=== PATIENT | female | born 1990 | race African-American/Black ===

== ENCOUNTER 2016-05-12 22:24 | Emergency (ER) | payer MEDICAID ==
[~2016-05-12] VITALS: Ht 165.1 cm; Wt 127.9 kg
[~2016-05-12 22:24] MED LIST: ALBUTEROL SULF8.5 GM INH; AMOXICILLIN500 M1 PO; AMOXICILLIN500 MG ORAL; AMOXICILLIN500 MG PO; CLEOCIN HCL300 MG PO; FLONASE1 SPRAYS; IBUPROFEN600 MG ORAL; IBUPROFEN800 MG ORAL; LIDOCAINE VISCO20 ML PO; NORCO 5-325 TA1 EACH ORAL; NORCO 5-325 TA1 EACH PO; PERCOCET 2.5-31 EACH ORAL; PERCOCET 5-3251 EACH ORAL; PERCOCET 5-3251 EACH PO; PERIDEX 0.12% O16 OZ MT; PHENERGAN25 M1 ORAL; PREDNISONE20 MG ORAL
--- NOTE | 2016-05-12 23:14 | Emergency Room Report ---
History of Present Illness General Chief Complaint: Headache Source: Patient Present Illness HPI This is a 25-year-old female with history of asthma and migraine. She presents with chief complaint of fever, body pain and headache. Onset today. Denies any nausea vomiting. Pain is diffuse. 10 out of 10. [id number] medication not helping. Does have sore throat. No cough. Mild congestion. Allergies: Coded Allergies: MORPHINE (Verified Allergy, Intermediate, nausea, 02/17/12) Patient History Past Medical History: see triage record, old chart reviewed, asthma, migraines Past Surgical History: other Pertinent Family History: none Social History: Denies: smoking Last Menstrual Period: 05/12/16 Now: No Immunizations: other Reviewed Nursing Documentation: PMH: Agreed, PSxH: Agreed Nursing Documentation-PMH Past Medical History: No History, Except For Hx Asthma: Yes Review of Systems Eye: Denies: blurred vision, eye pain ENT: Denies: ear pain, nose congestion, throat swelling Respiratory: Denies: cough, shortness of breath Cardiovascular: Denies: chest pain, palpitations Gastrointestinal: Denies: abdominal pain, diarrhea, nausea, vomiting Musculoskeletal: Denies: back pain, joint pain Skin: Denies: rash Neurological: Reports: headache Endocrine: Denies: increased thirst, increased urine Hematologic/Lymphatic: Denies: easy bruising All Other Systems: negative except mentioned in HPI Physical Exam Vital Signs Date Time Temp Pulse Resp B/P Pulse Ox O2 Delivery O2 Flow Rate FiO2 05/12/16 22:47 102.4 112 131/84 99 Room Air vitals with fever Sp02 EP Interpretation: reviewed, normal General Appearance: well appearing, no apparent distress, alert Head: normocephalic, atraumatic Eyes: bilateral eye EOMI, bilateral eye PERRL ENT: hearing grossly normal, normal pharynx Neck: full range of motion, supple, no meningismus Respiratory: chest non-tender, lungs clear, normal breath sounds Cardiovascular #1: regular rate, rhythm, no murmur Gastrointestinal: normal bowel sounds, non tender, no mass, no organomegaly, no bruit, non-distended Musculoskeletal: back normal, gait/station normal, normal range of motion Psychiatric: mood/affect normal Skin: warm/dry Medical Decision Making Diagnostic Impression: Primary Impression: Headache Qualified Codes: G44.209 - Tension-type headache, unspecified, not intractable Additional Impression: Influenza-like illness ER Course Patient presents with body pain, headache and fever. Most likely viral in nature. No evidence of meningitis. Because this is flu season, will going to treat for Cynthia. Her onset is less than 48 hours. She also has risk factor of obesity and asthma. No evidence of sepsis, meningitis, or other serious bacterial infection. Lab Results Impression labs with leukocytosis Last Vital Signs Date Time Temp Pulse Resp B/P Pulse Ox O2 Delivery O2 Flow Rate FiO2 05/12/16 22:47 102.4 112 131/84 99 Room Air Status: improved Disposition: HOME, SELF-CARE Condition: Stable Scripts Oseltamivir Phosphate (Tamiflu) 75 Mg Capsule 75 MG ORAL TWICE A DAY, #10 CAP Prov: SELAM WADE M.D. 05/13/16 Hydrocodone/Acetaminophen 5-325* (HYDROCODONE/ACETAMINOPHEN 5-325*) 1 Each Tablet 1 TAB ORAL Q6H Y for For Pain, #20 TAB 0 Refills Prov: SELAM WADE M.D. 05/13/16 Referrals: [facility],REFERRING (PCP) Additional Instructions: Followup with your DrAnkit in 2 to 3 days. Return for increasing pain, fever, chills, or any concern. SELAM WADE M.D. May 12, 2016 23:14
[2016-05-12] MEDS ORDERED: Ketorolac 30mg Inj IV ONE (23:15)
[2016-05-12] MEDS ORDERED: Acetaminophen 500mg (ES) tab ORAL ONE (23:15)
[2016-05-13 00:18] LABS: MEAN CORPUSCULAR HEMOGLOBIN 27.1 PG (27.0-31.0); MEAN CORPUSCULAR HGB CONC 32.6 G/DL (32.0-36.0); MEAN CORPUSCULAR VOLUME 83 FL (80-99); MEAN PLATELET VOLUME 7.2 FL (6.5-10.1); PLATELET COUNT 271 K/UL (150-450); RED BLOOD COUNT 4.62 M/UL (4.20-5.40); RED CELL DISTRIBUTION WIDTH 14.3 % (11.6-14.8); WHITE BLOOD COUNT 16.6 K/UL (4.8-10.8)
[2016-05-13 00:20] LABS: APPEARANCE,URINE CLEAR; KETONES,URINE NEGATIVE (NEGATIVE); LEUKOCYTE ESTERASE ,URINE NEGATIVE (NEGATIVE); NITRITE,URINE NEGATIVE (NEGATIVE); PH,URINE 6 (4.5-8.0); PROTEIN,URINE NEGATIVE (NEGATIVE); UROBILINOGEN,URINE NORMAL MG/DL (0.0-1.0)
[2016-05-13 00:26] LABS: RBC,URINE 0 /HPF (0 - 2); SQUAMOUS EPITHELIAL CELL,UR FEW /LPF (NONE/OCC); WBC,URINE 0 /HPF (0 - 2)
[2016-05-13 00:31] LABS: ANION GAP 15 (5-15); CALCIUM 9.5 mg/dL (8.6-10.2); CARBON DIOXIDE 25 mEQ/L (20-30); CHLORIDE 97 mEQ/L (98-107); CREATININE 0.9 mg/dL (0.5-0.9); GLOMERULAR FILTRATION RATE > 60 mL/min (>60); HEMOLYSIS 0; POTASSIUM 4.4 mEQ/L (3.4-4.9); SODIUM 137 mEQ/L (135-145)
[2016-05-13 00:36] VITALS: BP 101/67
[2016-05-13] MEDS ORDERED: TAMIFLU75 MG ORAL (00:53)
[2016-05-13] MEDS ORDERED: HYDROCODON-ACE1 EA15 ORAL (00:53)
[2016-05-13 01:01] VITALS: BP 101/67
== END 2016-05-13 01:02 | disposition home or self-care (01) ==
LOC: EMR 22:45
DX: G44.209 Tension-type headache, unspecified, not intractable (principal); J11.1 Influenza due to unidentified influenza virus with other respiratory manifestations; Z88.6 Allergy status to analgesic agent; Z87.09 Personal history of other diseases of the respiratory system
CPT/HCPCS: 36415; 80048; 81001; 81025; 85025; 86710; 96374; 96375; 99284; J1885

== ENCOUNTER 2016-09-24 15:02 | Emergency (ER) | payer MEDICAID ==
[~2016-09-24] VITALS: Ht 165.1 cm; Wt 117.9 kg
[~2016-09-24 15:02] MED LIST changes: +HYDROCODON-ACE1 EA15 ORAL; +TAMIFLU75 MG ORAL
--- NOTE | 2016-09-24 15:57 | Emergency Room Report ---
History of Present Illness General Chief Complaint: Lower Extremity Injury Source: Patient Present Illness HPI 26 Yo female presents to the ED c/o 10/26 in severity anterior left leg tenderness with two areas of swelling. pt. reports discoloration, she reports trauma to location of henry near by in july, however states she has not had trauma to the location of her symptoms. pt. reports some numbness/tingling superficially to the area of discoloration. pt. denies fevers, chills, increased temperature to the touch, recent open lesions or itching. pt. denies abdominal pain or rashes. denies bruises elsewhere. pt. denies immune compromise. Denies CP, Palpitations, LOC, AMS, dizziness, Changes in Vision, Sensation, paresthesias, or a sudden severe headache. Allergies: Coded Allergies: MORPHINE (Verified Allergy, Intermediate, nausea, 02/17/12) Patient History Past Medical History: see triage record Past Surgical History: none Pertinent Family History: none Last Menstrual Period: 09/22/16 Now: No Reviewed Nursing Documentation: PMH: Agreed, PSxH: Agreed Nursing Documentation-PMH Hx Asthma: Yes Review of Systems All Other Systems: negative except mentioned in HPI Physical Exam Vital Signs Date Time Temp Pulse Resp B/P Pulse Ox O2 Delivery O2 Flow Rate FiO2 09/24/16 15:29 98.4 71 16 123/78 98 Room Air Sp02 EP Interpretation: reviewed, normal General Appearance: no apparent distress, alert, GCS 15, non-toxic Head: normocephalic, atraumatic Eyes: bilateral eye PERRL, bilateral eye normal inspection ENT: hearing grossly normal, normal pharynx, no angioedema, normal voice Neck: full range of motion, supple/symm/no masses Respiratory: lungs clear, normal breath sounds, speaking full sentences Cardiovascular #1: regular rate, rhythm, no edema Cardiovascular #2: 2+ dorsalis pedis (R), 2+ dorsalis pedis (L) Gastrointestinal: no guarding Musculoskeletal: back normal, gait/station normal, normal range of motion, non- tender, no calf tenderness, Sia's Sign negative, tender - to the anterior left henry, mild localized swelling, no lesions, no fluctuance at this time, some blanching erythema. Neurologic: alert, oriented x3, responsive, motor strength/tone normal, sensory intact, speech normal Psychiatric: judgement/insight normal, memory normal, mood/affect normal Skin: normal color, warm/dry, well hydrated, other - mild localized swelling, no lesions, no fluctuance at this time, some blanching erythema of the left anterior henry. mildly appreciable increase to temperature Medical Decision Making PA Attestation Dr Holland is my supervising Physician whom patient management has been discussed with. Diagnostic Impression: Primary Impression: Cellulitis of leg Qualified Codes: L03.116 - Cellulitis of left lower limb ER Course 26 Yo female presents to the ED c/o 10/26 in severity anterior left leg tenderness with two areas of swelling. pt. reports discoloration, she reports trauma to location of henry near by in july, however states she has not had trauma to the location of her symptoms. pt. reports some numbness/tingling superficially to the area of discoloration. pt. denies fevers, chills, increased temperature to the touch, recent open lesions or itching. pt. denies abdominal pain or rashes. denies bruises elsewhere. pt. denies immune compromise. Denies CP, Palpitations, LOC, AMS, dizziness, Changes in Vision, Sensation, paresthesias, or a sudden severe headache. Ddx considered but are not limited to cellulitis, DVT, insect bites, fracture, d/L, gout, varicose veins, PAD, venous stasis just to name a few. Vital signs: are WNL, pt. is afebrile H&PE are most consistent with cellulitis/ early abscess, no fluctuance at this time, some blanching. ORDERS: none required at this time, the diagnosis is clinical ED INTERVENTIONS: None required at this time. DISCHARGE: At this time pt. is stable for d/c to home. Will provide printed patient care instructions, and any necessary prescriptions. Care plan and follow up instructions have been discussed with the patient prior to discharge. Last Vital Signs Date Time Temp Pulse Resp B/P Pulse Ox O2 Delivery O2 Flow Rate FiO2 09/24/16 15:29 98.4 71 16 123/78 98 Room Air Disposition: HOME, SELF-CARE Condition: Stable Scripts Acetaminophen* (TYLENOL EXTRA STRENGTH*) 500 Mg Tablet 500 MG ORAL Q6H, #20 TAB 0 Refills Prov: Tania Mckeon 09/24/16 Cephalexin* (KEFLEX*) 500 Mg Capsule 500 MG ORAL EVERY 12 HOURS for 7 Days, #14 CAP 0 Refills Prov: Tania Mckeon 09/24/16 Patient Instructions: Cellulitis, [id number] Additional Instructions: Take medications as directed. * Follow up with a Primary Care Provider in 3-5 days, even if your symptoms have resolved. * --Please review list of primary care clinics, if you do not already have a primary care provider Return sooner to ED if new symptoms occur, or current symptoms become worse. - Please note that this Emergency Department Report was dictated using [employer] operator technology software, occasionally this can lead to erroneous entry secondary to interpretation by the dictation equipment. Tania Mckeon Sep 24, 2016 15:57
[2016-09-24] MEDS ORDERED: CEPHALEXIN500 MG ORAL (15:58)
[2016-09-24] MEDS ORDERED: TYLENOL EXTRA500 MG ORAL (15:58)
[2016-09-24 16:06] VITALS: BP 123/78
== END 2016-09-24 16:06 | disposition home or self-care (01) ==
LOC: EMR 15:39
DX: L03.116 Cellulitis of left lower limb (principal); J45.909 Unspecified asthma, uncomplicated
CPT/HCPCS: 99284

== ENCOUNTER 2016-11-27 19:05 | Emergency (ER) | payer MEDICAID ==
[~2016-11-27] VITALS: Ht 165.1 cm; Wt 122.9 kg
[~2016-11-27 19:05] MED LIST changes: +CEPHALEXIN500 MG ORAL; +TYLENOL EXTRA500 MG ORAL
[2016-11-27 20:04] VITALS: BP 123/79
[2016-11-27 21:10] LABS: APPEARANCE,URINE CLEAR; KETONES,URINE 2+ (NEGATIVE); LEUKOCYTE ESTERASE ,URINE 1+ (NEGATIVE); NITRITE,URINE NEGATIVE (NEGATIVE); PH,URINE 6 (4.5-8.0); PROTEIN,URINE 1+ (NEGATIVE); UROBILINOGEN,URINE NORMAL MG/DL (0.0-1.0)
[2016-11-27 21:25] LABS: BACTERIA,URINE FEW /HPF; RBC,URINE 0-2 /HPF (0 - 2); SQUAMOUS EPITHELIAL CELL,UR FEW /LPF (NONE/OCC); WBC,URINE 0-2 /HPF (0 - 2)
[2016-11-27 21:30] VITALS: BP 121/83
[2016-11-27] MEDS ORDERED: TYLENOL EXTRA500 MG ORAL (21:45)
[2016-11-27] MEDS ORDERED: PRENATAL 19 CH1 EAC1 PO (21:48)
[2016-11-27] MEDS ORDERED: CEPHALEXIN500 MG ORAL (21:51)
[2016-11-27 21:55] VITALS: BP 121/83
--- NOTE | 2016-11-28 10:59 | Diagnostic Imaging Report ---
Indication:Vaginal bleeding. Technique: Grayscale and duplex Doppler imaging of the pelvis performed utilizing a transabdominal scan and endovaginal scan. Comparison: None Findings: Single living IUP confirmed on endovaginal scanning estimated at 5 weeks 6 days based on crown-rump length. Yolk sac noted. heart tones demonstrated. Uterus is retroverted. Some small amount of free fluid noted in the cul-de-sac. There is involuting dominant hemorrhagic cyst within the right ovary measuring approximately 2.6 cm. Dopplerable blood flow noted within the solid portions of both ovaries. Impression: Single living IUP 5 weeks 6 days. Involuting hemorrhagic right ovarian cyst. Suggest followup.
--- NOTE | 2016-11-28 12:47 | Emergency Room Report ---
History of Present Illness General Chief Complaint: Abdominal Pain Source: Patient Present Illness HPI The patient is a 26-year-old female at approximately 5 weeks gestation by dates presenting for vaginal spotting and abdominal cramping which began today. Pain is a 7/10 throbbing sensation to the mid lower abdomen. No known provoking relieving factors. She describes the bleeding as light pink. She denies any vaginal discharge. She denies any tissue passage. She denies any other symptoms including N, V, F, chills, FLEMING, dizziness, blurred vision Allergies: Coded Allergies: MORPHINE (Verified Allergy, Intermediate, nausea, 02/17/12) Patient History Past Medical History: see triage record Pertinent Family History: none Now: Yes - "approx 3 weeks, 6 days" : 1 Reviewed Nursing Documentation: PMH: Agreed, PSxH: Agreed Nursing Documentation-PMH Past Medical History: No Stated History Hx Asthma: Yes Review of Systems All Other Systems: negative except mentioned in HPI Physical Exam Vital Signs Date Time Temp Pulse Resp B/P (MAP) Pulse Ox O2 Delivery O2 Flow Rate FiO2 11/27/16 19:10 98.1 99 21 123/79 99 Room Air Sp02 EP Interpretation: reviewed, normal General Appearance: no apparent distress, alert, GCS 15, non-toxic Head: normocephalic, atraumatic Eyes: bilateral eye normal inspection, bilateral eye PERRL ENT: hearing grossly normal, normal pharynx, no angioedema, normal voice Neck: full range of motion, supple/symm/no masses Respiratory: chest non-tender, lungs clear, normal breath sounds, speaking full sentences Gastrointestinal: normal bowel sounds, soft, non-distended, no guarding, no rebound, tenderness - suprapubic Genitourinary: normal inspection, no CVA tenderness Musculoskeletal: back normal, gait/station normal, normal range of motion, non- tender Neurologic: alert, oriented x3, responsive, motor strength/tone normal, sensory intact, speech normal Psychiatric: judgement/insight normal, memory normal, mood/affect normal, no suicidal/homicidal ideation Skin: normal color, warm/dry, well hydrated, other - erythema, edema, tenderness to L arm over tricep. 5cm in diametet. Lymphatic: no adenopathy Medical Decision Making PA Attestation Dr. Bermeo is my supervising physician. Patient management was discussed with my supervising physician Diagnostic Impression: Primary Impression: Left arm cellulitis Additional Impressions: First trimester Threatened miscarriage ER Course The patient is a 26-year-old female at approximately 5 weeks gestation by dates presenting for vaginal spotting Differential diagnoses considered include but not limited to Early , threatened , incomplete , complete , ectopic , hemorrhagic cyst PE: Afebrile. NAD Abd is soft. TTP over suprapubic region only. No CVA tenderness UA: 1+ occult blood. No nitrites. + preg OB US: Single living IUP 5 weeks 6 days. Involuting hemorrhagic right ovarian cyst. Suggest followup. At time of discharge, the patient shows me her L arm with erythema, tenderness, and slight edema. Hot to the touch. 5cm in diameter. She states this began as an insect bite. She denies itching. She will be treated for cellulitis and needs to FU with PMD as well as OB as soon as possible. Laboratory Tests Test 11/27/16 20:20 Urine Color Pale yellow Urine Appearance Clear Urine pH 6 (4.5-8.0) Urine Specific [place] 1.015 (1.005-1.035) Urine Protein 1+ (NEGATIVE) H Urine Glucose (UA) Negative (NEGATIVE) Urine Ketones 2+ (NEGATIVE) H Urine Occult Blood 1+ (NEGATIVE) H Urine Nitrite Negative (NEGATIVE) Urine Bilirubin Negative (NEGATIVE) Urine Urobilinogen Normal MG/DL (0.0-1.0) Urine Leukocyte Esterase 1+ (NEGATIVE) H Urine RBC 0-2 /HPF (0 - 2) Urine WBC 0-2 /HPF (0 - 2) Urine Squamous Epithelial Cells Few /LPF (NONE/OCC) Urine Bacteria Few /HPF (NONE) Urine HCG, Qualitative Positive Lab Results Impression 1+ occult blood. No nitrites. + preg CT/MRI/US Diagnostic Results CT/MRI/US Diagnostic Results : Imaging Test Ordered: OB US Impression Single living IUP 5 weeks 6 days. Involuting hemorrhagic right ovarian cyst. Suggest followup. Last Vital Signs Date Time Temp Pulse Resp B/P (MAP) Pulse Ox O2 Delivery O2 Flow Rate FiO2 11/27/16 21:55 98.1 84 20 121/83 97 Room Air Status: improved Disposition: HOME, SELF-CARE Condition: Improved Scripts Cephalexin* (KEFLEX*) 500 Mg Capsule 500 MG ORAL EVERY 12 HOURS, #14 CAP 0 Refills Prov: JEAN ARANA.A. 11/27/16 Pnv No.115/Iron Fumarate/FA ( 19 Chewable Tablet) 1 Each Tab.chew 1 EACH PO DAILY, #30 TAB Prov: JEAN ARANA.A. 11/27/16 Acetaminophen* (TYLENOL EXTRA STRENGTH*) 500 Mg Tablet 500 MG ORAL Q8H Y for Prn Headache/Temp > 101, #30 TAB 0 Refills Prov: JEAN ARANA.A. 11/27/16 Patient Instructions: First Trimester of Additional Instructions: I discussed my findings with the patient. All questions and concerns have been answered. Treatment and medication compliance have been addressed. I advised the patient that they need to follow up with PMD in 3-5 days. Return to ED if symptoms worsen, new symptoms arise, or if needed for any reason. Patient verbalized understanding of discharge instructions. Patient will follow up with OB as soon as possible. JEAN ARANA Nov 28, 2016 12:47
== END 2016-11-27 21:55 | disposition home or self-care (01) ==
LOC: EMR 20:21
DX: O20.0 Threatened abortion (principal); Z3A.01 Less than 8 weeks gestation of pregnancy; L03.114 Cellulitis of left upper limb; Z88.6 Allergy status to analgesic agent; N83.201 Unspecified ovarian cyst, right side
CPT/HCPCS: 76801; 76830; 81003; 81025; 99284

== ENCOUNTER 2016-12-20 08:15 | Emergency (ER) | payer MEDICAID ==
[~2016-12-20] VITALS: Ht 165.1 cm; Wt 118.4 kg
[~2016-12-20 08:15] MED LIST changes: +PRENATAL 19 CH1 EAC1 PO
[2016-12-20] MEDS ORDERED: Acetaminophen 500mg (ES) tab ORAL ONE (08:45)
[2016-12-20] MEDS ORDERED: TYLENOL EXTRA500 MG ORAL (08:49)
[2016-12-20 08:55] VITALS: BP 97/66
--- NOTE | 2016-12-20 09:54 | Emergency Room Report ---
History of Present Illness General Chief Complaint: Pain Source: Patient Present Illness HPI 26-year-old female presents ED for evaluation. Patient is complaining of right hip pain which started this morning. Denies any trauma. States pain makes it difficult for her to walk. Kit, 10/26, nonradiating. Patient is . Denies any vaginal bleeding or discharge at this time. Denies any abdominal pain. Denies any flank pain. No other aggravating relieving factors. Denies any other associated symptoms Allergies: Coded Allergies: MORPHINE (Verified Allergy, Intermediate, nausea, 02/17/12) Patient History Past Medical History: asthma Past Surgical History: none Pertinent Family History: none Social History: Denies: smoking, alcohol use, drug use Last Menstrual Period: 2 months Now: Yes : 1 Para: 0 Immunizations: UTD Reviewed Nursing Documentation: PMH: Agreed, PSxH: Agreed Nursing Documentation-PMH Past Medical History: No History, Except For Hx Asthma: Yes Review of Systems All Other Systems: negative except mentioned in HPI Physical Exam Vital Signs Date Time Temp Pulse Resp B/P (MAP) Pulse Ox O2 Delivery O2 Flow Rate FiO2 12/20/16 08:16 98.1 75 14 98/62 99 12/20/16 08:55 Room Air Sp02 EP Interpretation: reviewed, normal General Appearance: no apparent distress, alert, GCS 15, non-toxic, obese ENT: normal ENT inspection Neck: normal inspection Respiratory: chest non-tender, lungs clear, normal breath sounds, speaking full sentences Cardiovascular #1: regular rate, rhythm, no edema Gastrointestinal: normal bowel sounds, non tender, soft, non-distended, no guarding, no rebound Rectal: deferred Genitourinary: no CVA tenderness Musculoskeletal: normal range of motion, tender - R hip Neurologic: alert, oriented x3, responsive, motor strength/tone normal, sensory intact, speech normal Psychiatric: normal inspection Skin: normal inspection Lymphatic: normal inspection Medical Decision Making Diagnostic Impression: Primary Impression: Hip pain Qualified Codes: M25.551 - Pain in right hip ER Course Hospital Course 26-year-old female presents to ED complaining of R hip pain no trauma Differential diagnoses include: Fracture, dislocation, sprain, contusion, bursitis Clinical course Patient placed on stretcher. After initial history, physical exam reveals a female in no acute distress. There is some tenderness to the right hip. No bruising or crepitus. No deformity. Pain with external rotation. There is no abdominal pain. No flank pain. Because of I do not believe patient should receive x-rays and I believe there is a low risk of bony injury given lack of trauma Patient agrees. Likely muscular pain. Given Tylenol in ED. Recommend followup with RECEIVING INSPECTOR Diagnosis - hip pain stable and discharged to home with prescription for Tylenol. Followup with PMD. Return to ED if symptoms recur or worsen Last Vital Signs Date Time Temp Pulse Resp B/P (MAP) Pulse Ox O2 Delivery O2 Flow Rate FiO2 12/20/16 08:55 89 18 97/66 99 Room Air 12/20/16 08:16 98.1 Status: improved Disposition: HOME, SELF-CARE Condition: Stable Scripts Acetaminophen* (TYLENOL EXTRA STRENGTH*) 500 Mg Tablet 500 MG ORAL Q8H Y for Prn Headache/Temp > 101, #30 TAB 0 Refills Prov: DANIELA YATES M.D. 12/20/16 Patient Instructions: Hip Pain DANIELA YATES M.D. Dec 20, 2016 09:54
== END 2016-12-20 08:57 | disposition home or self-care (01) ==
LOC: EMR 08:39
DX: M25.551 Pain in right hip (principal); J45.909 Unspecified asthma, uncomplicated
CPT/HCPCS: 99283

== ENCOUNTER 2018-01-02 22:25 | Emergency (ER) | payer MEDICAID ==
[~2018-01-02] VITALS: Ht 165.1 cm; Wt 113.4 kg
[2018-01-02 22:50] VITALS: BP 125/81
[2018-01-02] MEDS ORDERED: IBUPROFEN600 MG ORAL (22:52)
[2018-01-02] MEDS ORDERED: AMOXICILLIN500 MG ORAL (22:52)
--- NOTE | 2018-01-02 22:52 | Emergency Room Report ---
History of Present Illness General Chief Complaint: Sore Throat Source: Patient Present Illness HPI Is a 27-year-old female with history of asthma. She presents with chief complaint of sore throat. Onset this morning when she woke up. No fever chills but no nausea no vomiting. No cough or congestion. Worse with swallowing. Nothing made it better. Denies any other complaint. Pain is 9 out of 10. Allergies: Coded Allergies: MORPHINE (Verified Allergy, Intermediate, nausea, 02/17/12) Patient History Past Medical History: see triage record, old chart reviewed, asthma Pertinent Family History: none Social History: Denies: smoking Last Menstrual Period: 12/18/17 Now: No : 1 Immunizations: other Reviewed Nursing Documentation: PMH: Agreed; PSxH: Agreed Nursing Documentation-PMH Past Medical History: No History, Except For Hx Asthma: Yes Review of Systems Eye: Denies: eye pain, blurred vision ENT: Reports: ear pain, throat pain, throat swelling; Denies: nose congestion Respiratory: Denies: cough, shortness of breath Cardiovascular: Denies: chest pain, palpitations Gastrointestinal: Denies: abdominal pain, diarrhea, nausea, vomiting Musculoskeletal: Denies: back pain, joint pain Skin: Denies: rash Neurological: Denies: headache, numbness Endocrine: Denies: increased thirst, increased urine Hematologic/Lymphatic: Denies: easy bruising All Other Systems: negative except mentioned in HPI Physical Exam Vital Signs Date Time Temp Pulse Resp B/P (MAP) Pulse Ox O2 Delivery O2 Flow Rate FiO2 01/02/18 22:33 99.0 106 18 125/81 98 Room Air 99.0 vitals unremarkable Sp02 EP Interpretation: reviewed, normal General Appearance: well appearing, no apparent distress, alert Head: normocephalic, atraumatic Eyes: bilateral eye PERRL, bilateral eye EOMI ENT: hearing grossly normal, tonsillar swelling, pharyngeal erythema, tonsillar exudate Neck: full range of motion, supple, no meningismus Respiratory: chest non-tender, lungs clear, normal breath sounds Cardiovascular #1: regular rate, rhythm, no murmur Gastrointestinal: normal bowel sounds, non tender, no mass, no organomegaly, no bruit, non-distended Musculoskeletal: back normal, gait/station normal, normal range of motion Psychiatric: mood/affect normal Skin: warm/dry Medical Decision Making Diagnostic Impression: Primary Impression: Acute bacterial tonsillitis ER Course Patient with exudative tonsillitis. Most likely strep. No other criteria for viral infection. no evidence of peritonsillar abscess, retropharyngeal abscess , or Sacha angina. We'll discharge home with antibiotics. Last Vital Signs Date Time Temp Pulse Resp B/P (MAP) Pulse Ox O2 Delivery O2 Flow Rate FiO2 01/02/18 22:33 99.0 106 18 125/81 98 Room Air 99.0 Status: unchanged Disposition: HOME, SELF-CARE Condition: Stable Scripts Ibuprofen* (MOTRIN*) 600 Mg Tablet 600 MG ORAL THREE TIMES A DAY, #30 TAB 0 Refills Prov: Jovany Crump MD 01/02/18 Amoxicillin* (AMOXIL*) 500 Mg Capsule 500 MG ORAL THREE TIMES A DAY, #21 CAP Prov: Jovany Crump MD 01/02/18 Patient Instructions: Strep Throat Additional Instructions: Increase fluids. Salt water gargle. Follow-up with your Dr. in 2-3 days if not better. Return if worse. Jovany Crump MD Jan 02, 2018 22:52
[2018-01-02 23:03] VITALS: BP 126/72
== END 2018-01-02 23:03 | disposition home or self-care (01) ==
LOC: EMR 22:51
DX: J03.90 Acute tonsillitis, unspecified (principal); B96.89 Other specified bacterial agents as the cause of diseases classified elsewhere; J45.909 Unspecified asthma, uncomplicated
CPT/HCPCS: 99283; J7512

== ENCOUNTER 2018-02-20 17:07 | Emergency (ER) | payer MEDICAID ==
[~2018-02-20] VITALS: Ht 165.1 cm; Wt 131.5 kg
[2018-02-20 17:12] VITALS: BP 110/75
[2018-02-20 17:58] LABS: EOSINOPHILS % (AUTO) 1.2 % (0.0-3.0); HEMATOCRIT 37.5 % (37.0-47.0); HEMOGLOBIN 11.8 G/DL (12.0-16.0); LYMPHOCYTES % (AUTO) 20.6 % (20.0-45.0); MEAN CORPUSCULAR VOLUME 75 FL (80-99); MONOCYTES % (AUTO) 5.8 % (1.0-10.0); NEUTROPHILS % (AUTO) 71.4 % (45.0-75.0); PLATELET COUNT 365 K/UL (150-450); RED BLOOD COUNT 5.03 M/UL (4.20-5.40); RED CELL DISTRIBUTION WIDTH 15.5 % (11.6-14.8); WHITE BLOOD COUNT 7.4 K/UL (4.8-10.8)
[2018-02-20] MEDS ORDERED: Morphine Sulfate 2mg/ml Inj IVP ONE (18:00)
[2018-02-20 18:08] LABS: ANION GAP 7 mmol/L (5-15); BLOOD UREA NITROGEN 12 mg/dL (7-18); CALCIUM 9.3 MG/DL (8.5-10.1); CARBON DIOXIDE 32 MMOL/L (21-32); CHLORIDE 99 MMOL/L (98-107); SODIUM 137 MMOL/L (136-145)
[2018-02-20 18:12] LABS: ALANINE AMINOTRANSFERASE 27 U/L (12-78); ALBUMIN/GLOBULIN RATIO 0.5 (1.0-2.7); ALKALINE PHOSPHATASE 117 U/L (46-116); ASPARTATE AMINO TRANSFERASE 19 U/L (15-37); BILIRUBIN,TOTAL 0.3 MG/DL (0.2-1.0)
--- NOTE | 2018-02-20 19:04 | Emergency Room Report ---
History of Present Illness General Chief Complaint: Abdominal Pain Source: Patient Present Illness HPI 27 YO Female presents to the ED C/O 10/ pain since yesterday evening. pt reports localized LLQ pain and tenderness. pt. reports unable to get up out of bed because moving exacerbates pain. Pt. reports deep breaths also significantly exacerbate her abdominal pain. pt. states she history of asthma and has been out of her albuterol medication for one week. Denies fevers, chills, nausea, vomiting, constipation, diarrhea, vaginal discharge/bleeding, . Pt. reports hx of ovarian cyst. Denies hx of STI. Pt. reports dry cough/ wheezing x 1 week since not having her medication. Denies blood in the urine, vomit or stool. Denies CP, recent travel, or estrogen use. Allergies: Coded Allergies: MORPHINE (Verified Allergy, Intermediate, nausea, 02/17/12) Patient History Past Medical History: see triage record Past Surgical History: none Pertinent Family History: none Now: No Reviewed Nursing Documentation: PMH: Agreed; PSxH: Agreed Nursing Documentation-PMH Past Medical History: No History, Except For Hx Asthma: Yes Review of Systems All Other Systems: negative except mentioned in HPI Physical Exam Vital Signs Date Time Temp Pulse Resp B/P (MAP) Pulse Ox O2 Delivery O2 Flow Rate FiO2 02/20/18 17:12 98.4 120 22 110/75 97 Room Air Sp02 EP Interpretation: reviewed, normal General Appearance: alert, GCS 15, non-toxic, moderate distress - left adnexal pain Head: normocephalic, atraumatic Eyes: bilateral eye normal inspection, bilateral eye PERRL ENT: hearing grossly normal, normal voice Neck: full range of motion Respiratory: lungs clear, no rhonchi, no respiratory distress, no accessory muscle use, speaking full sentences, wheezing - expiratory wheezing- minimal Cardiovascular #1: regular rate, rhythm, tachycardia - initial triage tachy, improved after pain medication Gastrointestinal: normal bowel sounds, non tender, soft, non-distended, tenderness - moderate ttp in the left left adnexal area. no Right adnexal or RLQ ttp. Rectal: deferred Genitourinary: normal inspection, no CVA tenderness, other - Left adnexal pain Musculoskeletal: back normal, gait/station normal, normal range of motion, non- tender Neurologic: alert, oriented x3, responsive, motor strength/tone normal, sensory intact, normal gait, speech normal, grossly normal Psychiatric: judgement/insight normal Skin: normal color, no rash, warm/dry, well hydrated Medical Decision Making PA Attestation Dr. Hernandez is my supervising Physician whom patient management has been discussed with. Diagnostic Impression: Primary Impression: Ovarian cyst Qualified Codes: N83.201 - Unspecified ovarian cyst, right side; N83.202 - Unspecified ovarian cyst, left side Additional Impressions: Rupture of ovarian cyst acute bronchitis ER Course 27 YO Female presents to the ED C/O 1010 pain since yesterday evening. pt reports localized LLQ pain and tenderness. pt. reports unable to get up out of bed because moving exacerbates pain. Pt. reports deep breaths also significantly exacerbate her abdominal pain. pt. states she history of asthma and has been out of her albuterol medication for one week. Denies fevers, chills, nausea, vomiting, constipation, diarrhea, vaginal discharge/bleeding, . Pt. reports hx of ovarian cyst. Denies hx of STI. Pt. reports dry cough/ wheezing x 1 week since not having her medication. Denies blood in the urine, vomit or stool. Ddx considered but are not limited to Diverticulitis, acute appendicitis diarrhea,UC, PUD, GE, pancreatitis, gallstone, ovarian torsion, ectopic , PID tubo-ovarian abscess. Vital signs:pt. is afebrile. She was tachycardic upon triage however heart rate normalized after pain medication was administered H&PE are most consistent with possible ovarian cyst complication, must r/o ectopic or torsion. ORDERS: -CBC, CMP, LIPASE: Unremarkable, all WNL -UA: Unremarkable -URINE HCG: Negative Pelvic US Complete: Consistent with free fluid in the cul-de-sac., And bilateral ovarian cysts- per accessibility lift technician this is pending official radiology report ED INTERVENTIONS: -- Morphine allergy per pt. is because she received it before but she didn't like the way it felt she was too drowsy and "out of it" pt. is ok with very small doses. -Morphine 2mg IV -Morphine 3 mg IV - pt. reports pain returned after having the US done. -[place] PO -Toradol IV - for anti-inflammatory effects mainly but also pain. - Albuterol HHN-- pt. reports feeling much better. Patient states she has had improvement with interventions, with current ultrasound findings as patient is stable for outpatient treatment and follow- up. I discussed with this patient that if she experiences worsening of her symptoms or new symptoms or uncontrollable pain to return promptly to the emergency department. DISCHARGE: At this time pt. is stable for d/c to home. Will provide printed patient care instructions, and any necessary prescriptions. Care plan and follow up instructions have been discussed with the patient prior to discharge. Labs Test 02/20/18 17:45 02/20/18 20:15 White Blood Count 7.4 K/UL (4.8-10.8) Red Blood Count 5.03 M/UL (4.20-5.40) Hemoglobin 11.8 G/DL (12.0-16.0) Hematocrit 37.5 % (37.0-47.0) Mean Corpuscular Volume 75 FL (80-99) Mean Corpuscular Hemoglobin 23.4 PG (27.0-31.0) Mean Corpuscular Hemoglobin Concent 31.4 G/DL (32.0-36.0) Red Cell Distribution Width 15.5 % (11.6-14.8) Platelet Count 365 K/UL (150-450) Mean Platelet Volume 7.1 FL (6.5-10.1) Neutrophils (%) (Auto) 71.4 % (45.0-75.0) Lymphocytes (%) (Auto) 20.6 % (20.0-45.0) Monocytes (%) (Auto) 5.8 % (1.0-10.0) Eosinophils (%) (Auto) 1.2 % (0.0-3.0) Basophils (%) (Auto) 1.0 % (0.0-2.0) Sodium Level 137 MMOL/L (136-145) Potassium Level 4.0 MMOL/L (3.5-5.1) Chloride Level 99 MMOL/L (98-107) Carbon Dioxide Level 32 MMOL/L (21-32) Anion Gap 7 mmol/L (5-15) Blood Urea Nitrogen 12 mg/dL (7-18) Creatinine 1.0 MG/DL (0.55-1.30) Estimat Glomerular Filtration Rate > 60 mL/min (>60) Glucose Level 97 MG/DL (74-106) Calcium Level 9.3 MG/DL (8.5-10.1) Total Bilirubin 0.3 MG/DL (0.2-1.0) Aspartate Amino Transf (AST/SGOT) 19 U/L (15-37) Alanine Aminotransferase (ALT/SGPT) 27 U/L (12-78) Alkaline Phosphatase 117 U/L (46-116) Total Protein 9.4 G/DL (6.4-8.2) Albumin 3.0 G/DL (3.4-5.0) Globulin 6.4 g/dL Albumin/Globulin Ratio 0.5 (1.0-2.7) Lipase 153 U/L (73-393) Human Chorionic Gonadotropin, Qual Negative (NEGATIVE) Urine Color Pale yellow Urine Appearance Clear Urine pH 6.5 (4.5-8.0) Urine Specific [place] 1.010 (1.005-1.035) Urine Protein 1+ (NEGATIVE) Urine Glucose (UA) Negative (NEGATIVE) Urine Ketones Negative (NEGATIVE) Urine Blood Negative (NEGATIVE) Urine Nitrite Negative (NEGATIVE) Urine Bilirubin Negative (NEGATIVE) Urine Urobilinogen Normal MG/DL (0.0-1.0) Urine Leukocyte Esterase 1+ (NEGATIVE) Urine RBC 0-2 /HPF (0 - 2) Urine WBC 2-4 /HPF (0 - 2) Urine Squamous Epithelial Cells Few /LPF (NONE/OCC) Urine Bacteria Few /HPF (NONE) CT/MRI/US Diagnostic Results CT/MRI/US Diagnostic Results : Imaging Test Ordered: Pelvic US Impression Pelvic US Complete: Consistent with free fluid in the cul-de-sac., And bilateral ovarian cysts- per accessibility lift technician this is pending official radiology report. Last Vital Signs Date Time Temp Pulse Resp B/P (MAP) Pulse Ox O2 Delivery O2 Flow Rate FiO2 02/20/18 18:43 98.4 02/20/18 17:12 120 22 Room Air 02/20/18 17:12 110/75 97 Disposition: HOME, SELF-CARE Condition: Stable Scripts Albuterol Sulfate* (ALBUTEROL SULFATE MDI*) 8.5 Gm Hfa.aer.ad 2 PUFF INH Q3H, #1 INH 2 Refills Prov: Tania Mckeon 02/20/18 Hydrocodone Bit/Acetaminophen 5-325* (NORCO 5-325*) 1 Each Tablet 1 TAB ORAL Q8HR PRN for For Pain, #9 TAB 0 Refills Prov: Tania Mckeon 02/20/18 Ibuprofen* (MOTRIN*) 600 Mg Tablet 600 MG ORAL THREE TIMES A DAY, #30 TAB 0 Refills Prov: Tania Mcekon 02/20/18 Referrals: [facility] (PCP) Departure Forms: Return to Work Return to Work Date: Feb 23, 2018 Work Restrictions: None Other Restrictions: May return Sooner if Symptoms have resolved. Return to Full Activity: Feb 23, 2018 Patient Instructions: Ovarian Cyst, [id number] Additional Instructions: Take medications as directed. Follow up with a REHAB NURSE and/or Primary Care Provider (PCP) within 3 days, even if your symptoms have resolved. Return sooner to ED if new symptoms occur, or current symptoms become worse. - Please note that this Emergency Department Report was dictated using [employer]up[employer] sharpener operator technology software, occasionally this can lead to erroneous entry secondary to interpretation by the dictation equipment. Tania Mckeon Feb 20, 2018 19:04
[2018-02-20] MEDS ORDERED: Norco 5mg/325mg tab ORAL ONE (19:15)
[2018-02-20] MEDS ORDERED: Morphine Sulfate 4mg/ml Inj (IV/IM USE ONLY) IVP ONE (19:30)
[2018-02-20] MEDS ORDERED: Albuterol ud Inhalation HHN ONE (19:30)
[2018-02-20] MEDS ORDERED: NORCO 5-325 TA1 EACH ORAL (20:28)
[2018-02-20] MEDS ORDERED: ALBUTEROL SULF8.5 GM INH (20:28)
[2018-02-20] MEDS ORDERED: IBUPROFEN600 MG ORAL (20:28)
[2018-02-20] MEDS ORDERED: Ketorolac 30mg Inj IV ONE (20:30)
[2018-02-20 20:35] LABS: APPEARANCE,URINE CLEAR; BILIRUBIN, URINE NEGATIVE (NEGATIVE); COLOR,URINE PALE YELLOW; GLUCOSE, URINE (UA) NEGATIVE (NEGATIVE); KETONES,URINE NEGATIVE (NEGATIVE); LEUKOCYTE ESTERASE ,URINE 1+ (NEGATIVE); NITRITE,URINE NEGATIVE (NEGATIVE); PH,URINE 6.5 (4.5-8.0); PROTEIN,URINE 1+ (NEGATIVE); UROBILINOGEN,URINE NORMAL MG/DL (0.0-1.0)
[2018-02-20 21:08] VITALS: BP 113/72
--- NOTE | 2018-02-21 08:57 | Diagnostic Imaging Report ---
Indication: Pelvic pain, negative test Technique: Transabdominal and transvaginal images. Duplex interrogation of the bilateral ovaries Comparison: Obstetric ultrasound dated 11/27/2016 Findings: Uterus measures 7.8 cm length by 3.5 cm AP. Endometrium measures 12 mm thick. No myometrial abnormality. There is a small cervical nabothian cyst. There is a small amount of free pelvic cul-de-sac fluid. Right ovary measures 3.6 cm length. Left ovary measures 3 cm in length. Normal ovarian flow seen on Doppler imaging. No adnexal mass. Trace free cul-de-sac fluid demonstrated. Impression: Essentially unremarkable exam Trace free cul-de-sac fluid, most likely physiologic Incidental finding small cervical nabothian cyst
== END 2018-02-20 21:06 | disposition home or self-care (01) ==
LOC: EMR 17:38
DX: N83.201 Unspecified ovarian cyst, right side (principal); J20.9 Acute bronchitis, unspecified; J45.909 Unspecified asthma, uncomplicated
CPT/HCPCS: 36415; 76830; 76856; 80053; 81003; 83690; 84703; 85025; 94640; 94664; 96361; 96374; 96375; 96376; 99284; J1885; J2270

== ENCOUNTER 2018-07-03 19:38 | Emergency (ER) | payer MEDICAID ==
[~2018-07-03] VITALS: Ht 165.1 cm; Wt 149.7 kg
--- NOTE | 2018-07-03 19:59 | NUR ---
ED Nurse Note: PT CAME TO ED FROM HOME C/O BILATERAL SWELLING OF LEGS. SWELLING NOTICED, +2 PITTING EDEMA. PT STATES PAINFUL WHEN WALKING. PT STATES THAT IT BEGAN LAST MONTH ON THE RIGHT LEG. PT WENT TO A HOSITAL AND WAS GIVEN LASIX AND ABX. A FEW WEEKS LATER HER LEFT LEG BEGAN TO SWELL.
[2018-07-03 20:01] VITALS: BP 142/85
--- NOTE | 2018-07-03 20:06 | NUR ---
ED Nurse Note: PT HAS PAIN 7/10, DENIES LONG TRAVEL TRANSPORTATION.
--- NOTE | 2018-07-03 20:31 | Emergency Room Report ---
History of Present Illness General Chief Complaint: Edema Source: Patient Present Illness HPI 27 YO Female presents to the ED c/o rash on Torso as well as LE edema, She has been treated since mid May for peripheral edema she states that she had moderate response with Lasix however her doctor switched her to HCTZ. Patient reports that this medication has not been working as well and her doctor said that he would eventually increase her dosage. Patient is requesting dosage increased she denies dizziness, near syncope or feeling weak/pain while taking medication. Patient states that she was fully worked up on June 10 for peripheral edema by having bilateral ultrasound performed and imaging of the chest as well as x-ray of her lungs. Patient states that all tests came back as normal and she was discharged. Pt. denies CP, SOB, fevers, chills or swollen tender lymph nodes. Denies lesions/rashes elsewhere on the body. Denies new body washes or creams. Denies swelling of the lips, tongue , throat or airway. Denies wheezing at this time. Denies recent travel, recent illness or ill contacts. denies blisters, oral lesions, or sloughing of the skin. Pt. reports hx of asthma and is also requesting refill of her inhaler. pt. denies increased frequency of need to use her inhaler. Allergies: Coded Allergies: MORPHINE (Verified Allergy, Intermediate, nausea, 02/17/12) Patient History Past Medical History: see triage record Past Surgical History: none Pertinent Family History: none Last Menstrual Period: Jul 01 2018 Now: No Reviewed Nursing Documentation: PMH: Agreed; PSxH: Agreed Nursing Documentation-PMH Hx Asthma: Yes Review of Systems All Other Systems: negative except mentioned in HPI Physical Exam Vital Signs Date Time Temp Pulse Resp B/P (MAP) Pulse Ox O2 Delivery O2 Flow Rate FiO2 07/03/18 19:47 99.0 100 18 142/85 98 Room Air Sp02 EP Interpretation: reviewed, normal General Appearance: no apparent distress, alert, GCS 15, non-toxic Head: normocephalic, atraumatic Eyes: bilateral eye normal inspection, bilateral eye PERRL ENT: hearing grossly normal, normal voice, other - no swelling of the lips or tongue. Neck: full range of motion Respiratory: lungs clear, normal breath sounds, no respiratory distress, no wheezing, speaking full sentences Cardiovascular #1: regular rate, rhythm, no edema - bilateral LE's, normal capillary refill, other - no calf tenderness Gastrointestinal: non tender, soft, other - rash Musculoskeletal: back normal, gait/station normal, normal range of motion, non- tender Neurologic: alert, oriented x3, responsive, motor strength/tone normal, sensory intact, speech normal, grossly normal Psychiatric: judgement/insight normal Skin: normal color, warm/dry, well hydrated, rash - erythematous plaques some are confluent. limited to circumferential around the lower torso. , no blisters or vessicles. no scabs or crusting. Lymphatic: no adenopathy Medical Decision Making PA Attestation Dr. Teixeira is my supervising Physician whom patient management has been discussed with. Diagnostic Impression: Primary Impression: Rash and nonspecific skin eruption Additional Impressions: Peripheral edema Medication refill ER Course 27 YO Female presents to the ED c/o rash on Torso as well as LE edema, She has been treated since mid May for peripheral edema she states that she had moderate response with Lasix however her doctor switched her to HCTZ. Patient reports that this medication has not been working as well and her doctor said that he would eventually increase her dosage. Patient is requesting dosage increased she denies dizziness, near syncope or feeling weak/pain while taking medication. Patient states that she was fully worked up on June 10 for peripheral edema by having bilateral ultrasound performed and imaging of the chest as well as x-ray of her lungs. Patient states that all tests came back as normal and she was discharged. Pt. denies CP, SOB, fevers, chills or swollen tender lymph nodes. Denies lesions/rashes elsewhere on the body. Denies new body washes or creams. Denies swelling of the lips, tongue , throat or airway. Denies wheezing at this time. Denies recent travel, recent illness or ill contacts. denies blisters, oral lesions, or sloughing of the skin. Pt. reports hx of asthma and is also requesting refill of her inhaler. pt. denies increased frequency of need to use her inhaler. Ddx considered but are not limited to cellulitis, scabies, shingles, varicella, dermatitis, urticaria, eczema, tinea, viral exanthem, SJS, DVT, CHF, Peripheral vascular disease just to name a few. Vital signs: are WNL, pt. is afebrile H&PE are most consistent with Peripheral edema on diuretics , medication refill for albuterol. rash. --only on torso. ORDERS: none required at this time, the diagnosis is clinical ED INTERVENTIONS: None required at this time. DISCHARGE: At this time pt. is stable for d/c to home. Will provide printed patient care instructions, and any necessary prescriptions. Care plan and follow up instructions have been discussed with the patient prior to discharge. Last Vital Signs Date Time Temp Pulse Resp B/P (MAP) Pulse Ox O2 Delivery O2 Flow Rate FiO2 07/03/18 20:01 100 18 Room Air 07/03/18 20:01 99.0 142/85 98 Disposition: HOME, SELF-CARE Condition: Stable Scripts Diphenhydramine Hcl (ALLERGY) 25 Mg Capsule 25 MG PO Q6HR, #30 CAP Prov: Tania Mckeon 07/03/18 Albuterol Sulfate* (ALBUTEROL SULFATE MDI*) 8.5 Gm Hfa.aer.ad 2 PUFF INH Q4H, #1 INH 0 Refills Prov: Tania Mckeon 07/03/18 Hydrochlorothiazide* (HYDROCHLOROTHIAZIDE*) 50 Mg Tablet 50 MG ORAL DAILY, #15 TAB Prov: Tania Mckeon 07/03/18 Departure Forms: Return to Work Return to Work Date: Jul 07, 2018 Work Restrictions: None Other Restrictions: May return Sooner if Symptoms have resolved. Return to Full Activity: Jul 07, 2018 Patient Instructions: Peripheral Edema, Rash, [id number] Additional Instructions: Take medications as directed. Follow up with a Primary Care Provider in 3-5 days, even if your symptoms have resolved. --Please review list of primary care clinics, if you do not already have a primary care provider Return sooner to ED if new symptoms occur, or current symptoms become worse. Do not drink alcohol, drive, or operate heavy machinery while taking benadryl as this may cause drowsiness. - Please note that this Emergency Department Report was dictated using [employer] or coins salesperson technology software, occasionally this can lead to erroneous entry secondary to interpretation by the dictation equipment. Tania Mckeon Jul 03, 2018 20:31
[2018-07-03] MEDS ORDERED: HYDROCHLOROTHIA50 MG ORAL (20:33)
[2018-07-03] MEDS ORDERED: ALBUTEROL SULF8.5 GM INH (20:33)
[2018-07-03] MEDS ORDERED: ALLERGY25 MG PO (20:33)
--- NOTE | 2018-07-03 20:47 | NUR ---
ER DISCHARGE NOTE: Patient is cleared to be discharged per ERMD, pt is aox4, on room air, with stable vital signs. pt was given dc and prescription instructions, pt was able to verbalize understanding, pt id band removed. pt is able to ambulate with steady gait. pt took all belongings.
[2018-07-03 20:50] VITALS: BP 142/85
== END 2018-07-03 20:47 | disposition home or self-care (01) ==
LOC: EMR 20:10
DX: R21 Rash and other nonspecific skin eruption (principal); R60.9 Edema, unspecified; Z76.0 Encounter for issue of repeat prescription; Z88.6 Allergy status to analgesic agent
CPT/HCPCS: 99282